=== PATIENT | male | born 1985 | race Caucasian/White ===

== ENCOUNTER 2023-07-11 13:25 | Emergency (ER) | payer OTHER, SELFPAY ==
--- NOTE | 2023-07-11 13:32 | ED.URI ---
HPI - URI/Sore Throat General Chief Complaint: Upper Respiratory Infection Stated Complaint: Sore Throat Time Seen by Provider: 07/11/23 13:30 Source: patient Mode of arrival: ambulatory Limitations: no limitations History of Present Illness HPI Narrative: Tito is a 38-year-old male patient presenting to the clinic today with complaints of sore throat x 4 days. He reports symptoms started on Friday. Denies any fever or chills. Does feel as though he has some gland swelling on the right side of his neck. Denies any associated fever, chills, or body aches. Does state that he does have some fatigue. MD elicited complaint: sore throat Related Data Allergies Allergy/AdvReac Type Severity Reaction Status Date / Time venom-wasp Allergy Intermediate Swelling Verified 07/11/23 13:29 Review of Systems Review of Systems: Pertinent positives per HPI. Patient denies any fever, chills, rash, headache, visual changes, dizziness, cough, shortness of breath, chest pain, palpitations, nausea, vomiting, diarrhea, constipation, abdominal pain, or any urinary issues. PMFSH Social History Social History Smoking status: Current every day smoker Comments At the time of my signature, I reviewed and agree with the nursing past medical, surgical, social, and family history. There is no relevant family history pertinent to the patient complaint. Exam Narrative: General: Well-developed, well nourished, in no apparent distress Head: Normocephalic, atraumatic Eyes: Pupils equally round and reactive to light bilaterally, EOM intact, sclera and conjunctive clear, no discharge, lids normal Ears: TMs intact and clear, ear canals clear, no drainage, grossly hearing normal. Nose: Nares patent, clear discharge, no inflammation, no sinus tenderness. Mouth: Oral pharynx mildly red without lesions or masses, good dentition, MMM. Neck: Supple, trachea midline, no enlargement of anterior or posterior cervical nodes, no thyroid masses or goiter palpable. Cardio: Regular rate and rhythm, s1 and s2 normal, no murmur appreciated. Resp: Clear to auscultation bilaterally, no rhonchi, rales, wheezing or rubs Course Course Emergency Course: Portions of this record may have been created with voice recognition software. Level of Care: Express Care Visit Vital Signs Vital signs: Vital signs reviewed MDM - URI/Sore Throat MDM Narrative Medical decision making narrative: At the time of visit patient is resting comfortably on the exam table. Patient appears to be nontoxic. Labs: Strep test was negative in the clinic today. Plan: I suspect patient has viral pharyngitis. We will send strep for culture. Supportive measures were discussed with the patient and they voiced understanding discharge instructions and agrees to treatment plan. Return precautions reviewed Differential Diagnosis Differential diagnosis: Likely upper respiratory infection, otitis media, sinusitis, viral infection, bronchitis, influenza, pharyngitis and other (COVID) Discharge Plan Discharge Clinical Impression: Viral pharyngitis Patient Disposition: Home, Self-Care Condition: Stable Instructions: Antibiotic Form, Pharyngitis (ED) Additional Instructions: Strep test was negative in the clinic today. We will send strep for culture and if this comes back positive we will contact you in place you on antibiotics at that time Increase fluids and stay well hydrated Tylenol/motrin for pain/fever Flonase and OTC antihistamines as directed Vicks vapor rub to open sinuses Sinus rinses for congestion Cepacol spray, cough drops, throat lozenges, warm tea with honey/lemon, gargle salt water to soothe throat BRAT diet for diarrhea Clear liquids x 24 hours then advance as tolerated for nausea/vomiting Go to the ED if you develop a worsening in your condition- high fever not controlled by Tylenol or Mot
[2023-07-11 13:38] VITALS: BP 145/92; PULSE 103; RESP 16; TEMP 37; O2SAT 100
== END 2023-07-11 13:52 | disposition home or self-care (01) ==
PROVIDERS: Emergency Provider Nurse Practitioner Family; PCP Family Medicine
DX: J02.9 Acute pharyngitis, unspecified (principal); F17.200 Nicotine dependence, unspecified, uncomplicated
CPT/HCPCS: 87081; 87880; 99213; G0463

== ENCOUNTER 2023-10-31 09:11 | Outpatient (CLI) | payer OTHER, SELFPAY ==
[2023-10-31 15:38] LABS: Basophils Percent Auto 0.2 % (0.2-1.2); Eosinophils Absolute Auto 0.1 K/mm3 (0-0.3); Eosinophils Percent Auto 1.4 % (0-4.4); Immature Granulocyte Absolute 0.01 K/mm3 (0.00-0.031); Immature Granulocyte Percent A 0.2 % (0-0.5); Lymphocytes Absolute Auto 1.85 K/mm3 (0.9-3.2); Lymphocytes Percent Auto 35.7 % (18.3-44.2); Mean Corpuscular HGB Conc 33.3 g/dl (32-36); Mean Corpuscular Hemoglobin 30.7 pg (26-34); Mean Corpuscular Volume 92.2 fl (80-100); Mean Platelet Volume 11.8 fl (7.4-10.4); Monocytes Absolute Auto 0.4 K/mm3 (0.1-0.6); Monocytes Percent Auto 7.7 % (2.6-8.5); Neutrophils Absolute Auto 2.8 K/mm3 (1.3-6.7); Neutrophils Percent Auto 54.8 % (45.5-73.1); Platelet Count Result 147 k/mm3 (150-375); Red Blood Count 4.88 M/mm3 (4.6-6.20); Red Cell Distribution Width 11.9 % (11.5-14.5); White Blood Count 5.2 K/mm3 (4.5-10.0)
[2023-10-31 16:04] LABS: Alanine Aminotransferase 22 U/L (6-50); Albumin Level 4.5 g/dL (3.5-5.1); Alkaline Phosphatase 56 U/L (38-126); Anion Gap 9 mmol/L (4-12); Aspartate Amino Transferase 46 U/L (17-59); Bilirubin,Total 0.5 mg/dL (0.2-1.3); Blood Urea Nitrogen 15 mg/dL (9-20); Calcium 9.1 mg/dL (8.4-10.2); Carbon Dioxide 30 mmol/L (22-30); Chloride 100 mmol/L (98-107); Cholesterol 128 mg/dL (0-200); Estimated Glomerular Filt Rate > 60; Glucose 83 mg/dL (65-110); HDL Direct 54 mg/dL; Potassium 3.9 mmol/L (3.4-5.0); Sodium 139 mmol/L (137-145); Triglycerides 56 mg/dL (<150)
[2023-10-31 16:15] LABS: LDL Cholesterol Direct 55 mg/dL
== END 2023-10-31 09:12 | disposition home or self-care (01) ==
LOC: ANHGOSHLAB 09:12
PROVIDERS: PCP Family Medicine; Visit Provider Family Medicine
DX: R53.83 Other fatigue (principal); Z13.220 Encounter for screening for lipoid disorders; Z13.228 Encounter for screening for other metabolic disorders
CPT/HCPCS: 36415; 80053; 80061; 85025

== ENCOUNTER 2023-11-05 08:27 | Outpatient (CLI) | payer OTHER, SELFPAY ==
--- NOTE | 2023-11-05 08:36 | EST_ITS ---
Patient Info Name: Tito Wilkes Age: 38 years : 1985 Gender: Male Ht: 70 in Wt: 183 lbs BSA: 2.04 m2 HR: 62 bpm BP: 112 / 77 mmHg Exam Date: 11/05/2023 9:40 AM Exam Location: Echo Lab Patient Status: Outpatient Admit Date: 11/05/2023 Staff Ordering Physician: Maurisio Boykin DO Attending Provider: Maurisio Boykin DO Exercise Technologist: Corrina Moody [facility] Exercise Physician: Linus Ackerman DO Exam Type: CA stress test treadmill Study Info A treadmill exercise stress test was performed. Summary 1. 1. Negative Óscar exercise stress test for ischemic ST changes by ECG criteria. 2. 2. Good functional capacity, achieving 12 METs of workload. 3. 3. Appropriate HR response to exercise. 4. 4. Appropriate HR recovery at 1 minute post exercise. 5. 5. No imaging with stress testing. 6. 6. Patient informed of the above results. Protocol: Óscar Stress ECG Details Stage: REST Duration (min): 1 min : 19 sec Speed (mph): 0.0 Grade (%): 0 HR (bpm): 62 SBP (mmHg): 112 DBP (mmHg): 77 METS: --- Stage: REST Duration (min): 6 min : 0 sec Speed (mph): 0.0 Grade (%): 0 HR (bpm): 70 SBP (mmHg): 112 DBP (mmHg): 77 METS: --- Stage: STAGE 1 Duration (min): 1 min : 0 sec Speed (mph): 1.7 Grade (%): 10 HR (bpm): 91 SBP (mmHg): 112 DBP (mmHg): 77 METS: --- Stage: STAGE 1 Duration (min): 2 min : 0 sec Speed (mph): 1.7 Grade (%): 10 HR (bpm): 99 SBP (mmHg): 112 DBP (mmHg): 77 METS: --- Stage: STAGE 1 Duration (min): 3 min : 0 sec Speed (mph): 1.7 Grade (%): 10 HR (bpm): 99 SBP (mmHg): 128 DBP (mmHg): 73 METS: --- Stage: STAGE 2 Duration (min): 1 min : 0 sec Speed (mph): 2.5 Grade (%): 12 HR (bpm): 105 SBP (mmHg): 128 DBP (mmHg): 73 METS: --- Stage: STAGE 2 Duration (min): 2 min : 0 sec Speed (mph): 2.5 Grade (%): 12 HR (bpm): 111 SBP (mmHg): 138 DBP (mmHg): 71 METS: --- Stage: STAGE 2 Duration (min): 3 min : 0 sec Speed (mph): 2.5 Grade (%): 12 HR (bpm): 116 SBP (mmHg): 138 DBP (mmHg): 71 METS: --- Stage: STAGE 3 Duration (min): 1 min : 0 sec Speed (mph): 3.4 Grade (%): 14 HR (bpm): 125 SBP (mmHg): 153 DBP (mmHg): 70 METS: --- Stage: STAGE 3 Duration (min): 2 min : 0 sec Speed (mph): 3.4 Grade (%): 14 HR (bpm): 133 SBP (mmHg): 153 DBP (mmHg): 70 METS: --- Stage: STAGE 3 Duration (min): 3 min : 0 sec Speed (mph): 3.4 Grade (%): 14 HR (bpm): 141 SBP (mmHg): 168 DBP (mmHg): 77 METS: --- Stage: STAGE 4 Duration (min): 1 min : 0 sec Speed (mph): 4.2 Grade (%): 16 HR (bpm): 153 SBP (mmHg): 168 DBP (mmHg): 77 METS: --- Stage: STAGE 4 Duration (min): 2 min : 0 sec Speed (mph): 4.2 Grade (%): 16 HR (bpm): 154 SBP (mmHg): 178 DBP (mmHg): 90 METS: --- Stage: STAGE 4 Duration
--- NOTE | 2023-11-05 08:37 | ECHO_ITS ---
Patient Info Name: Tito Wilkes Age: 38 years : 1985 Gender: Male Ht: 70 in Wt: 175 lbs BSA: 1.99 m2 HR: 65 bpm BP: 137 / 91 mmHg Heart Rhythm: Sinus Rhythm Technical Quality: Good Exam Date: 11/05/2023 9:06 AM Exam Location: Echo Lab Patient Status: Outpatient Admit Date: 11/05/2023 Staff Ordering Physician: Maurisio Boykin DO Chief Architect: Forest Kunz RDCS Attending Provider: Maurisio Boykin DO Referring Physician: Ashutosh CALL; Exam Type: CA echo doppler color flow Study Info Indications - other forms of dyspnea Complete two-dimensional, color flow and Doppler transthoracic echocardiogram is performed. Summary 1. Complete two-dimensional, color flow and Doppler transthoracic echocardiogram is performed. 2. Left ventricular chamber dimension is normal. 3. Left ventricular systolic function is normal, estimated at 60-65%. 4. The left ventricular diastolic function is normal. 5. There is trace mitral valve regurgitation. 6. There is trace tricuspid valve regurgitation. 7. No pulmonary hypertension, estimated pulmonary arterial systolic pressure is 17 mmHg. Left Ventricle Left ventricular chamber dimension is normal. Left ventricular systolic function is normal, estimated at 60-65%. The left ventricular diastolic function is normal. Right Ventricle Right ventricular systolic function is normal and with normal TAPSE 3.0 cm. Right ventricular chamber dimension is normal. Left Atria Left atrial chamber dimension is normal. Right Atria Right atrial chamber dimension is normal. Aortic Valve The aortic valve is trileaflet. There is no aortic valve stenosis. There is no aortic valve regurgitation. Pulmonic Valve There is no pulmonic regurgitation. Mitral Valve There is no mitral valve stenosis. There is trace mitral valve regurgitation. Tricuspid Valve There is trace tricuspid valve regurgitation. No pulmonary hypertension, estimated pulmonary arterial systolic pressure is 17 mmHg. Pericardium/Pleural There is no pericardial effusion. Inferior Vena Cava Normal inferior vena cava with >50% collapse upon inspiration consistent with normal right atrial pressure, 5 mmHg. Aorta The aortic root size at the sinus of Valsalva is normal. Left Ventricular Outflow Tract Name Value Normal LVOT 2D LVOT Diameter 2.0 cm LVOT Doppler LVOT Peak Gradient 3 mmHg LVOT Mean Gradient 2 mmHg LVOT VTI 19 cm LVOT VTI/AV VTI Ratio 1.1 LVOT Stroke Volume 56 ml LVOT CO 7.5 l/min LVOT CI 3.8 l/min/m2 Pulmonic Valve Name Value Normal PV Doppler PV Peak Gradient 3 mmHg Mitral Valve Name Value Beth
== END 2023-11-05 08:28 | disposition home or self-care (01) ==
LOC: ANHCARD 08:30
PROVIDERS: PCP Family Medicine; Visit Provider Family Medicine
DX: R06.09 Other forms of dyspnea (principal)
CPT/HCPCS: 93017; 93306

== ENCOUNTER 2024-06-01 16:37 | Emergency (ER) | payer OTHER, SELFPAY ==
--- NOTE | 2024-06-01 16:38 | ED.URI ---
HPI - URI/Sore Throat General Chief Complaint: Upper Respiratory Infection Stated Complaint: SORE THROAT Time Seen by Provider: 06/01/24 16:38 Source: patient Mode of arrival: ambulatory Limitations: no limitations History of Present Illness HPI Narrative: Tito is a 39-year-old male patient presenting to the clinic today with complaints of sore throat x1 week. He reports no other URI symptoms. No fevers, body aches, or chills. Related Data Allergies Allergy/AdvReac Type Severity Reaction Status Date / Time venom-wasp Allergy Intermediate Swelling Verified 06/01/24 16:47 Review of Systems Review of Systems: Pertinent positives per HPI. Patient denies any fever, chills, rash, headache, visual changes, dizziness, cough, shortness of breath, chest pain, palpitations, nausea, vomiting, diarrhea, constipation, abdominal pain, or any urinary issues. PMFSH Social History Social History Smoking status: Current every day smoker Comments At the time of my signature, I reviewed and agree with the nursing past medical, surgical, social, and family history. There is no relevant family history pertinent to the patient complaint. Exam Narrative: General: Well-developed, well nourished, in no apparent distress Head: Normocephalic, atraumatic Eyes: Pupils equally round and reactive to light bilaterally, EOM intact, sclera and conjunctive clear, no discharge, lids normal Ears: TMs intact and clear, ear canals clear, no drainage, grossly hearing normal. Nose: Nares patent, no discharge, no inflammation, no sinus tenderness. Mouth: Oral pharynx mildly red without lesions or masses, good dentition, MMM. Neck: Supple, trachea midline, no enlargement of anterior or posterior cervical nodes, no thyroid masses or goiter palpable. Cardio: Regular rate and rhythm, s1 and s2 normal, no murmur appreciated. Resp: Clear to auscultation bilaterally, no rhonchi, rales, wheezing or rubs Course Course Emergency Course: Portions of this record may have been created with voice recognition software. Level of Care: Express Care Visit Vital Signs Vital signs: Vital Signs Temperature 36.8 C 06/01/24 16:41 Pulse Rate 80 06/01/24 16:41 Respiratory Rate 16 06/01/24 16:41 Blood Pressure 134/92 H 06/01/24 16:41 Pulse Oximetry 100 06/01/24 16:41 Oxygen Delivery Room Air 06/01/24 16:41 Temperature 36.8 C 06/01/24 16:41 Pulse Rate 80 06/01/24 16:41 Respiratory Rate 16 06/01/24 16:41 Blood Pressure 134/92 H 06/01/24 16:41 Pulse Oximetry 100 06/01/24 16:41 Oxygen Delivery Room Air 06/01/24 16:41 Vital signs reviewed MDM - URI/Sore Throat MDM Narrative Medical decision making narrative: At the time of visit patient is resting comfortably on the exam table. Patient appears to be nontoxic. Labs: Strep test was performed and negative in the clinic today. We will send strep for culture. Plan: I suspect patient has viral pharyngitis. Supportive measures were discussed with the patient and they voiced understanding discharge instructions and agrees to treatment plan. Return precautions reviewed Differential Diagnosis Differential diagnosis: Likely upper respiratory infection, otitis media, sinusitis, viral infection, bronchitis, influenza, pharyngitis and other (COVID) Discharge Plan Discharge Clinical Impression: Pharyngitis Qualifiers: Pharyngitis/tonsillitis etiology: unspecified etiology Qualified Code(s): J02.9 - Acute pharyngitis, unspecified Patient Disposition: Home Condition: Stable Instructions: Antibiotic Form, Pharyngitis (ED) Additional Instructions: Strep test was negative in the clinic today. We will send strep for culture if this comes back positive we will contact you in place you on antibiotics at that time. Increase fluids and stay well hydrated Tylenol/motrin for pain/fever Flonase and OTC antihistamines as directed Vicks vapor rub to open sinuses Sinus rinses for congestion Cepacol spray, cough drops, throat lozenges, warm tea with honey/lemon, gargle salt water to soothe throat BRAT diet for diarrhea Clear liquids x 24 hours then advance as tolerated for nausea/vomiting Go to the ED if you develop a worsening in your condition- high fever not controlled by Tylenol or Motrin, dehydration, weakness, lethargy, shortness of breath, or chest pain. Follow up with your PCP in 3-5 days if symptoms persist. Patient Language: Estonian Prescriptions: No Action epinephrine 0.1 mg/0.1 mL auto-injector 0.1 mg IM ONCE Qty: 2 4RF Rx Instructions: GO TO ER AFTER USE Follow-up/Referrals: UNKNOWN,DOCTOR [Non-Staff] - Time of Disposition: 17:01 Quality NIHSS Nursing Documentation ED NIHSS nursing documentation: reviewed/agree
[2024-06-01 16:41] VITALS: BP 134/92; PULSE 80; RESP 16; TEMP 36.8; O2SAT 100
[2024-06-01 17:03] LABS: EDSTREPNEGPOS1 Negative (Negative)
== END 2024-06-01 17:04 | disposition home or self-care (01) ==
PROVIDERS: Emergency Provider Nurse Practitioner Family; PCP Family Medicine
DX: J02.9 Acute pharyngitis, unspecified (principal); F17.200 Nicotine dependence, unspecified, uncomplicated
CPT/HCPCS: 87081; 87880; 99213; G0463